=== PATIENT | female | born 1950 | race Caucasian/White ===

== ENCOUNTER → 2020-09-06 | Outpatient (CLI) | payer OTHER ==
[~2020-09-06] MED LIST: ACETAMINOPHEN650 MG PR; AMLODIPINE BES2.5 MG PO; ASPIRIN81 MG PO; ATORVASTATIN CA20 MG PO; CILOSTAZOL50 MG PO; CRESTOR10 MG PO; DULOXETINE HCL60 MG PO; FUROSEMIDE20 MG PO; GABAPENTIN300 MG PO; IMDUR ER TAB 3030 MG PO; IMODIUM A-1 MG/7.5 M PO; K-DUR TAB 10 M10 MEQ PO; LEVOTHYROXINE25 MCG PO; LISINOPRIL10 MG PO; LOPRESSOR 25 MG25 MG PO; MILK OF MA400 MG/5 M PO; MIRALAX17 GM PO; OMNICEF 300 MG300 MG PO; RANOLAZINE ER1000 MG PO; ROPINIROLE HCL4 MG PO; SENNA-DOCUSATE1 EACH PO; TYLENOL325 M1 PO; ZOFRAN4 MG PO
== END ==
LOC: EXRD 12:18
DX: M25.50 Pain in unspecified joint (principal); M19.042 Primary osteoarthritis, left hand; M19.041 Primary osteoarthritis, right hand
CPT/HCPCS: 73130; 73630